=== PATIENT | male | born 1995 | race Caucasian/White ===

== ENCOUNTER 2019-06-27 21:06 | Emergency (ER) | payer OTHER ==
[~2019-06-27] VITALS: Ht 177.8 cm; Wt 113.4 kg
[2019-06-27] MEDS ORDERED: ALBUTEROL (21:20)
== END 2019-06-28 00:20 | disposition home or self-care (01) ==
LOC: ER 21:06
DX: J45.998 Other asthma (principal)

== ENCOUNTER 2021-02-14 14:24 | Emergency (ER) | payer OTHER ==
[~2021-02-14] VITALS: Ht 175.3 cm; Wt 111.6 kg
[~2021-02-14 14:24] MED LIST: ALBUTEROL
[2021-02-14] MEDS ORDERED: IPRATROPIU0.2 MG/1 M IH (17:27)
[2021-02-14] MEDS ORDERED: PROAIR RESPICL90 MCG IH (17:27)
[2021-02-14] MEDS ORDERED: ALBUTEROL0.63 MG/3 IH (17:27)
[2021-02-14] MEDS ORDERED: ZITHROMAX500 MG PO (17:30)
== END 2021-02-14 17:40 | disposition home or self-care (01) ==
LOC: ER 14:24
DX: J45.901 Unspecified asthma with (acute) exacerbation (principal); R05 Cough

== ENCOUNTER 2022-01-04 00:18 | Emergency (ER) | payer OTHER ==
[~2022-01-04] VITALS: Ht 167.6 cm; Wt 104.3 kg
[~2022-01-04 00:18] MED LIST changes: +ALBUTEROL0.63 MG/3 IH; +IPRATROPIU0.2 MG/1 M IH; +PROAIR RESPICL90 MCG IH; +ZITHROMAX500 MG PO
[2022-01-04] MEDS ORDERED: DICLOFENAC SODI50 MG PO (04:27)
== END 2022-01-05 | disposition home or self-care (01) ==
LOC: ER 00:18
DX: S93.491A Sprain of other ligament of right ankle, initial encounter (principal); X50.1XXA Overexertion from prolonged static or awkward postures, initial encounter; Y93.9 Activity, unspecified; Y92.89 Other specified places as the place of occurrence of the external cause; Y99.9 Unspecified external cause status

== ENCOUNTER 2023-03-20 11:29 | Emergency (ER) | payer OTHER ==
[~2023-03-20] VITALS: Ht 177.8 cm; Wt 108.9 kg
[~2023-03-20 11:29] MED LIST changes: +DICLOFENAC SODI50 MG PO
[2023-03-20 15:52] LABS: HEMATOCRIT 40.8 % (39.0-48.0); MEAN CELL VOLUME 78.3 fL (80.0-100.00); MEAN CORPUSCULAR HEMOGLOBIN 24.9 pg (27.00-32.0); MEAN CORPUSCULAR HGB CONC 31.8 g/dl (32.0-36.0); PLATELET COUNT 198 K/uL (150-450); RED BLOOD COUNT 5.21 M/uL (4.00-6.00); RED CELL DISTRIBUTION WIDTH 14.4 % (11.5-14.5)
[2023-03-20 16:14] LABS: CREATININE SERUM 1.05 mg/dL (0.70-1.30); GFR 86.06
[2023-03-20] MEDS ORDERED: AMOX-CLAV 875-1 EAC1 PO (17:01)
== END 2023-03-20 17:24 | disposition home or self-care (01) ==
LOC: ER
PROVIDERS: Nurse Practitioner Family
DX: J03.90 Acute tonsillitis, unspecified (principal); J35.8 Other chronic diseases of tonsils and adenoids; Z20.822 Contact with and (suspected) exposure to COVID-19

== ENCOUNTER 2023-03-29 12:36 | Emergency (ER) | payer OTHER ==
[~2023-03-29] VITALS: Ht 177.8 cm; Wt 104.3 kg
[~2023-03-29 12:36] MED LIST changes: +AMOX-CLAV 875-1 EAC1 PO
[2023-03-29] MEDS ORDERED: PROAIR RESPICL90 MCG (13:28)
[2023-03-29 14:29] LABS: HEMOGLOBIN 13.1 g/dL (13-16.00); MEAN CELL VOLUME 78.2 fL (80.0-100.00); MEAN CORPUSCULAR HGB CONC 31.9 g/dl (32.0-36.0); PLATELET COUNT 261 K/uL (150-450); RED BLOOD COUNT 5.24 M/uL (4.00-6.00); RED CELL DISTRIBUTION WIDTH 14.4 % (11.5-14.5)
[2023-03-29 14:37] LABS: ABG PH 7.426 (7.35-7.45); ABG PO2 75.4 mmHg (80-100); BASE EXCESS -0.7 mmol/l; BICARBONATE 23.1 mmol/l (23-25); SaO2 95.3 %; Tco2 24.2 mmol/l
[2023-03-29 14:50] LABS: allen test SATISFACTORY; o2 21 %; puncture site RADIAL RIGHT
[2023-03-29] MEDS ORDERED: SINGULAIR10 MG PO (15:15)
[2023-03-29] MEDS ORDERED: IPRAT-ALBUT 0.5-3 ML IH (15:15)
[2023-03-29] MEDS ORDERED: MEDROLPACK PO (15:15)
[2023-03-29] MEDS ORDERED: TUSNEL LIQUID178 ML PO (15:16)
== END 2023-03-29 15:32 | disposition home or self-care (01) ==
LOC: ER 12:36
PROVIDERS: General Practice
DX: R06.02 Shortness of breath (principal); Z20.822 Contact with and (suspected) exposure to COVID-19

== ENCOUNTER 2024-12-05 11:47 | Emergency (ER) | payer OTHER ==
[~2024-12-05] VITALS: Ht 177.8 cm; Wt 127.0 kg
[~2024-12-05 11:47] MED LIST changes: +IPRAT-ALBUT 0.5-3 ML IH; +MEDROLPACK PO; +PROAIR RESPICL90 MCG; +SINGULAIR10 MG PO; +TUSNEL LIQUID178 ML PO
[2024-12-05] MEDS ORDERED: BUDEO.25 (12:02)
[2024-12-05] MEDS ORDERED: LEVALBUTEROL HCL 1.25 MG/3 ML SOLUTION IH SCH (12:15)
[2024-12-05] MEDS ORDERED: HYDROCODONE/CHLORPHEN P-STIREX 5 ML ML PO ONE (12:15)
[2024-12-05] MEDS ORDERED: AZITHROMYCIN 500 MG TABLET PO ONE ×2 (12:15→12:39)
[2024-12-05] MEDS ORDERED: METHYLPREDNISOLONE SOD SUCC 125 MG VIAL IV ONE (12:15)
[2024-12-05] MEDS ORDERED: LEVALBUTEROL HCL 1.25 MG/3 ML SOLUTION IH ONE (12:30)
[2024-12-05] MEDS ORDERED: IPRATROPIUM BROMIDE 0.5 MG/2.5 ML AMPUL.NEB IH ONE (12:31)
[2024-12-05] MEDS ORDERED: METHYLPREDNISOLONE SOD SUCC 125 MG VIAL ONE (12:39)
[2024-12-05] MEDS ORDERED: GUAIFEN/DEXTROMETHORPHAN/PE 10 ML BLIST.PACK PO ONE (12:40)
[2024-12-05 13:16] LABS: ABG PH 7.413 (7.35-7.45); ABG PO2 201.9 mmHg (80-100); ABG pCO2 38.3 mmHg (35-45); BASE EXCESS -0.4 mmol/l; BICARBONATE 23.9 mmol/l (23-25); SaO2 99.7 %; Tco2 25.1 mmol/l
[2024-12-05 13:39] LABS: COVID-19 AG POSITIVE (NEGATIVE)
[2024-12-05 13:53] LABS: INFLUENZA A AG NEGATIVE (NEGATIVE); INFLUENZA B AG NEGATIVE (NEGATIVE)
[2024-12-05] MEDS ORDERED: PAXLOVID 300/11 EACH PO (13:53)
[2024-12-05 13:55] LABS: BASO % 0.6 % (0.1-1.2); EOS # 0.23 (0.04-0.54); EOS % 3.3 % (0.7-7.0); HEMATOCRIT 45.1 % (40.1-51.0); HEMOGLOBIN 14.4 g/dL (13.7-17.5); LYMPH # 2.37 (1.18-3.74); LYMPH % 34.4 % (19.3-53.1); MEAN CORPUSCULAR HEMOGLOBIN 24.7 pg (25.6-32.2); MONO # 0.76 (0.24-0.82); NEUT # 3.43 (1.56-6.13); NEUT % 49.8 % (34.0-71.1); PLATELET COUNT 250 K/uL (163-369); RED BLOOD COUNT 5.83 M/uL (4.63-6.08); RED CELL DISTRIBUTION WIDTH 14.8 % (11.6-14.4)
[2024-12-05 14:26] LABS: allen test SATISFACTORY; o2 21 %; puncture site RADIAL LEFT
[2024-12-05 14:27] LABS: mode ROOM AIR
[2024-12-05 14:41] LABS: ALBUMIN 3.9 gm/dL (3.4-5.0); BILIRUBIN TOTAL 0.51 mg/dL (0.3-1.2); CALCIUM 9.4 mg/dL (8.5-10.1); CREATININE SERUM 0.89 mg/dL (0.70-1.30); GFR 102.54; POTASSIUM 5.16 mEq/L (3.5-5.1); TOTAL PROTEIN 7.9 gm/dL (6.4-8.2)
== END 2024-12-05 14:35 | disposition home or self-care (01) ==
LOC: ER 12:13
PROVIDERS: General Practice
DX: U07.1 COVID-19 (principal); R05.9 Cough, unspecified

== ENCOUNTER 2025-05-21 10:57 | Emergency (ER) | payer OTHER ==
[~2025-05-21] VITALS: Ht 177.8 cm; Wt 122.5 kg
[~2025-05-21 10:57] MED LIST changes: +BUDEO.25; +PAXLOVID 300/11 EACH PO
[2025-05-21] MEDS ORDERED: METHYLPREDNISOLONE SOD SUCC 125 MG VIAL IM STA (12:31)
[2025-05-21] MEDS ORDERED: IPRATROPIUM BROMIDE 0.5 MG/2.5 ML AMPUL.NEB IH SCH (12:45)
[2025-05-21] MEDS ORDERED: METHYLPREDNISOLONE SOD SUCC 125 MG VIAL ONE (12:47)
[2025-05-21] MEDS ORDERED: IPRATROPIUM BROMIDE 0.5 MG/2.5 ML AMPUL.NEB IH ONE (13:35)
[2025-05-21] MEDS ORDERED: LEVALBUTEROL HCL 1.25 MG/3 ML SOLUTION IH ONE (13:45)
[2025-05-21 13:50] LABS: BASO % 0.5 % (0.1-1.2); EOS # 0.06 (0.04-0.54); EOS % 0.8 % (0.7-7.0); LYMPH # 1.50 (1.18-3.74); LYMPH % 20.2 % (19.3-53.1); MEAN PLATELET VOLUME 9.50 fl (9.4-12.4); MONO # 0.75 (0.24-0.82); MONO % 10.1 % (4.7-12.5); NEUT # 5.04 (1.56-6.13); NEUT % 67.7 % (34.0-71.1); RED CELL DISTRIBUTION WIDTH 14.4 % (11.6-14.4)
[2025-05-21 13:53] LABS: ERYTHROCYTE SEDIMENTATION RATE 23 mm/hr (0-15)
[2025-05-21 13:55] LABS: URINE APPEARANCE Clear; URINE BILIRRUBIN Negative (NEGATIVE); URINE BLOOD Negative; URINE COLOR Yellow; URINE GLUCOSE Negative (NEGATIVE); URINE KETONE Trace (NEGATIVE); URINE LEUKOCYTE Negative; URINE NITRATE Negative; URINE PROTEIN Trace (NEGATIVE); URINE UROBILINOGEN 1.0 E.U./dl
[2025-05-21 13:59] LABS: URINE BACTERIA 12.5 uL (0.0-1933); URINE EPITHELIAL CELLS 3.3 uL (0.0-38.8); URINE RBC 24.9 uL (0.0-20.8); URINE WBC 14.6 uL (0.0-23.2)
[2025-05-21 14:21] LABS: ALT/SGPT 47.0 U/L (12-78); AST/SGOT 26.0 U/L (15-37); BILIRUBIN TOTAL 0.74 mg/dL (0.3-1.2); BUN CREA RATIO 17.0 (7.0-25.0); CREATININE SERUM 0.77 mg/dL (0.70-1.30); GFR 121.19; GLOBULINA 4.0 G/DL (2.4-3.5); GLUCOSE FASTING 98.0 mg/dL (65-100); OSMOLALITY SERUM 279.0 MOSM/KG (275-295)
[2025-05-21 14:21] LABS: URINE CAST 0.70 uL (0.0-1.40)
[2025-05-21 14:36] LABS: COVID-19 AG NEGATIVE (NEGATIVE)
[2025-05-21] MEDS ORDERED: ALBUTEROL2.5 MG/3 M IH (16:32)
[2025-05-21] MEDS ORDERED: MEDROLPACK PO (16:32)
[2025-05-21] MEDS ORDERED: BUDESONIDE0.5 MG/2 M IH (16:32)
== END 2025-05-21 16:48 | disposition home or self-care (01) ==
LOC: ER 10:57
PROVIDERS: Physician Assistant Medical
DX: J98.01 Acute bronchospasm (principal); R06.02 Shortness of breath; R07.89 Other chest pain; R05.8 Other specified cough; Z20.822 Contact with and (suspected) exposure to COVID-19